=== PATIENT | male | born 1990 | race Caucasian/White ===

== ENCOUNTER 2016-07-26 19:50 | Emergency (ER) | payer BC ==
[2016-07-26 21:50] VITALS: BP 131/76
[2016-07-26] MEDS ORDERED: Amoxicillin CAP* 500 MG PO ONE (22:27)
[2016-07-26] MEDS ORDERED: Ibuprofen TAB* 600 MG PO ONE (22:28)
--- NOTE | 2016-07-26 22:38 | UC ---
Throat Pain/Nasal Duc HPI - HPI Summary HPI Summary: 2 DAYS OF SWOLLEN TENDER GLANDS RIGHT SIDE > LEFT SIDE. PAIN WITH SWALLOWING. FEVER TMAX 101.4. LAST DOSE IBUPROFEN 12 HOURS AGO. NO COUGH, CONGESTION, EAR PAIN OR N/V/D. - History of Current Complaint Chief Complaint: UCGeneralIllness Stated Complaint: SWOLLEN GLAND Time Seen by Provider: 07/26/16 22:19 Hx Obtained From: Patient Onset/Duration: Gradual Onset, Lasting Days, Still Present Severity: Moderate Pain Intensity: 6 Pain Scale Used: 0-10 Numeric Cough: None Associated Signs & Symptoms: Positive: Fever - Allergies/Home Medications Allergies/Adverse Reactions: Allergies Allergy/AdvReac Type Severity Reaction Status Date / Time No Known Allergies Allergy Verified 07/26/16 21:50 Home Medications: Home Medications Ibuprofen TAB* [Advil TAB*] 400 mg PO PRN 07/26/16 [History] PMH/Surg Hx/FS Hx/Imm Hx Previously Healthy: Yes - Surgical History Surgical History: Yes Surgery Procedure, Year, and Place: RLE LOWER LEG ORIF - Family History Known Family History: Positive: Hypertension - Social History Alcohol Use: Occasionally Substance Use Type: Marijuana Smoking Status (MU): Never Smoked Tobacco Review of Systems Constitutional: Fever, Chills ENT: Sore Throat Respiratory: Negative Cardiovascular: Negative Gastrointestinal: Negative All Other Systems Reviewed And Are Negative: Yes Physical Exam Triage Information Reviewed: Yes Appearance: Well-Appearing, No Pain Distress, Well-Nourished Vital Signs: Initial Vital Signs Temp 100.4 F 07/26/16 21:47 Pulse 112 07/26/16 21:47 Resp 16 07/26/16 21:47 BP 131/76 07/26/16 21:47 Pulse Ox 99 07/26/16 21:47 Vital Signs Reviewed: Yes Eyes: Positive: Conjunctiva Clear ENT: Positive: Hearing grossly normal, Pharyngeal erythema, TMs normal, Tonsillar swelling, Tonsillar exudate. Negative: Muffled/hoarse voice Neck: Positive: Supple, Tenderness @ - RIGHT SPFL CERVICAL LAD, Enlarged Nodes @ - SPFL CERVICAL LAD Respiratory Exam: Normal Cardiovascular: Positive: Tachycardia Abdomen Description: Positive: Soft Musculoskeletal: Positive: No Edema Neurological: Positive: Alert Psychological: Positive: Age Appropriate Behavior Skin: Negative: rashes Throat Pain/Nasal Course/Dx - Differential Dx/Diagnosis Provider Diagnoses: STREP PHARYNGITIS - CLINICAL DX Discharge - Discharge Plan Condition: Stable Disposition: HOME Prescriptions: Amoxicillin CAP* [Amoxicillin 500 MG CAP*] 500 mg PO Q12H #19 cap Patient Education Materials: Strep Throat (ED) Forms: *Work Release Referrals: No Primary Care Phys,NOPCP [Primary Care Provider] - Additional Instructions: CLINICALLY YOU HAVE STREP AND WILL BE TREATED ACCORDINGLY. TAKE THE AMOXICILLIN FOR THE FULL 10 DAYS. OTC CHLORASEPTIC OR CEPACOL LOZENGES FOR SORE THROAT NEEDED ONCE SYMPTOMS RESOLVED - NEW TOOTHBRUSH DO NOT SHARE FOOD, DRINK, UTENSILS CALL THE NUMBER BELOW FOR ASSISTANCE IN ESTABLISHING WITH A PCP An additional resource available to assist in finding the appropriate physician for your health care needs is [facility] ([facility]). You may contact them by calling [phone].
== END 2016-07-26 22:40 | disposition home or self-care (01) ==
LOC: UCEAST 19:50
DX: J02.0 Streptococcal pharyngitis (principal); F12.90 Cannabis use, unspecified, uncomplicated
CPT/HCPCS: 99212; A9270-GY; G0463